=== PATIENT | female | born 1970 | race Caucasian/White ===

== ENCOUNTER 2017-10-01 11:18 | Emergency (ER) | payer SELFPAY ==
[~2017-10-01] VITALS: Ht 152.4 cm; Wt 81.6 kg
[2017-10-01 11:21] VITALS: BP 144/74
--- NOTE | 2017-10-01 11:25 | NUR ---
PT TAKEN TO BED 7
--- NOTE | 2017-10-01 11:25 | NUR ---
PATIENT PRESENTS TO ED WITH FOOT LAC . PT STATES SHE STEPPED ON A NAIL THIS MORNING. DENIES N/V/D; SKIN IS PINK/WARM/DRY; AAOX4 WITH EVEN AND STEADY GAIT; LUNGS CLEAR BL; HR EVEN AND REGULAR; PATIENT STATES PAIN OF 8/10 AT THIS TIME; VSS; PATIENT POSITIONED FOR COMFORT; HOB ELEVATED; BEDRAILS UP X2; BED DOWN. ER MD MADE AWARE OF PT STATUS.
[2017-10-01 12:59] VITALS: BP 126/71
--- NOTE | 2017-10-01 12:59 | NUR ---
Patient discharged with v/s stable. Written and verbal after care instructions given and explained. Patient alert, oriented and verbalized understanding of instructions. Ambulatory with steady gait. All questions addressed prior to discharge. ID band removed. Patient advised to follow up with PMD. Rx of MOLTRIN given. Patient educated on indication of medication including possible reaction and side effects. Opportunity to ask questions provided and answered.
== END 2017-10-01 12:59 | disposition home or self-care (01) ==
LOC: MED 11:18
DX: S91.312A Laceration without foreign body, left foot, initial encounter (principal); E11.9 Type 2 diabetes mellitus without complications; I10 Essential (primary) hypertension; Z90.49 Acquired absence of other specified parts of digestive tract; Z90.710 Acquired absence of both cervix and uterus; W22.8XXA Striking against or struck by other objects, initial encounter; Y93.89 Activity, other specified; Y92.89 Other specified places as the place of occurrence of the external cause; Y99.8 Other external cause status
CPT/HCPCS: 90471; 90715; 99283

== ENCOUNTER 2021-05-05 12:46 | Emergency (ER) | payer OTHER ==
[~2021-05-05] VITALS: Ht 152.4 cm; Wt 81.6 kg
[2021-05-05 13:23] VITALS: BP 134/68
--- NOTE | 2021-05-05 13:45 | NUR ---
BIB DAUGHTER C/O RIGHT KNEE PAIN, SWELLING X YESTERDAY. DENIES TRAUMA/INJURY. BLOOD SUGAR 362 AT THIS TIME. PMH: DM, HYSTERECTOMY, GALL BLADDER REMOVAL, LEFT KNEE SUGERY
[2021-05-05] MEDS ORDERED: KETOROLAC 30 MG/ML VIAL IM ONE (13:50)
[2021-05-05] MEDS ORDERED: ACET-8386 PO (14:32)
[2021-05-05] MEDS ORDERED: MELO5CAP3 PO (14:34)
--- NOTE | 2021-05-05 14:47 | NUR ---
Patient discharged with v/s stable. Written and verbal after care instructions ABOUT ARTHRITIS given and explained. Patient alert, oriented and verbalized understanding of instructions. Ambulatory with steady gait. All questions addressed prior to discharge. ID band removed. Patient advised to follow up with PMD. Rx of MELOXICAM given. Patient educated on indication of medication including possible reaction and side effects. Opportunity to ask questions provided and answered.
== END 2021-05-05 14:47 | disposition home or self-care (01) ==
LOC: MED 12:46
DX: M25.561 Pain in right knee (principal); E11.9 Type 2 diabetes mellitus without complications; I10 Essential (primary) hypertension; Z98.890 Other specified postprocedural states; Z90.49 Acquired absence of other specified parts of digestive tract; Z90.710 Acquired absence of both cervix and uterus; Z79.899 Other long term (current) drug therapy
CPT/HCPCS: 96372; 99283; J1885